=== PATIENT | male | born 1980 | race Caucasian/White ===

== ENCOUNTER → 2021-02-03 09:40 | Outpatient (CLI) | payer OTHER ==
[~2021-02-03 09:40] MED LIST: KETO10TA2 PO; ORPH100T PO
== END | disposition home or self-care (01) ==
LOC: PPH VACUNA 09:40
DX: Z23 Encounter for immunization (principal)

== ENCOUNTER 2021-11-10 02:00 | Outpatient (CLI) | payer OTHER | END 2021-11-10 02:30 | disposition home or self-care (01) | LOC: PPH VACUNA 02:00 | PROVIDERS: ATTEND Emergency Medicine Pediatric Emergency Medicine | DX: Z23 Encounter for immunization (principal) ==

== ENCOUNTER 2025-07-30 07:48 | Outpatient (CLI) | payer OTHER | END 2025-07-30 07:51 | disposition home or self-care (01) | LOC: RAD 07:48 | PROVIDERS: ATTEND Family Medicine | DX: R10.84 Generalized abdominal pain (principal); R42 Dizziness and giddiness; G44.059 Short lasting unilateral neuralgiform headache with conjunctival injection and tearing (SUNCT), not intractable ==